=== PATIENT | male | born 1935 | race Caucasian/White ===

== ENCOUNTER 2017-01-05 07:22 | Day surgery (SDC) | payer MEDICARE, OTHER ==
[~2017-01-05] VITALS: Ht 167.6 cm; Wt 71.4 kg
[2017-01-05] VITALS (7 sets, daily range): BP systolic 99–141; BP diastolic 54–82; PULSE 59–65; RESP 15–22; O2SAT 96–100
[~2017-01-05 07:22] MED LIST: ATOR80TA PO; CeFAZolin Inj 2 GM in IV Premix 1 EACH IV ONE; LISI-567 PO; Lactated Ringer's 1,000 ML IV SCH
[2017-01-05] MEDS ORDERED: fentaNYL-PF 50 mCg/mL 2 mL Inj ONE (07:23)
[2017-01-05] MEDS ORDERED: Propofol 10,000 mCg/mL 20 mL Inj ONE (07:23)
[2017-01-05] MEDS ORDERED: Lactated Ringer's 1,000 ML IV ONE (08:30)
--- NOTE | 2017-01-05 09:15 | PCM.HPANE ---
Patient Data Date of Service: Jan 05, 2017 Surgeon Admitting Provider: Attending Provider:John Cartagena DO Primary Care Physician:Jad Warren MD Other Provider:Rickie Cuadra Anesthesia Reason for Visit Right Carpal Tunnel Syndrome, Wrist Radial Deviati Ht/WT & BMI Height (Feet): 5 Height (Inches): 6 Weight (Kilograms): 71.4 Body Mass Index 25.00 Allergies Uncoded Allergies: ENVIRONMENTAL POLLENS (Allergy, Unknown, 01/03/17) Past Anesthesia History Anesthesia History: Denies:: Abnormal Airway, Anesthesia Reactions, Difficult Intubation, Fam Anesthesia Reaction Diabetes History Hx Diabetes?: No MRSA MRSA: No Medications Hypertension Medication: Yes Home Meds Incl Beta Kelvin: No Reported Medications Lisinopril 20 Mg [id number] Mg PO DAILY 30 Days Ref 0 01/03/17 Atorvastatin (Lipitor)80 Mg [id number] Mg PO DAILY Ref 0 01/03/17 History History of ENT Problems?: No HEENT History: Denies:: Abnormal Airway Cataracts Difficult Intubation Dysphagia Glaucoma Hearing Problem Sinus Problem TMJ Hx of Heart Problems?: Yes Cardiovascular History: Positive for:: Hypertension Denies:: AICD Atrial Fibrillation Cardiac Surgery Chest Pain Congestive Heart Failure Coronary Artery Disease Edema Heart Murmur Irregular Heartbeat Pacemaker Peripheral Vascular Rheumatic Fever Thrombophlebitis Valvular Heart Disease Other Cardiac History: bilateral carotid- dr menezes at [facility] 5 years ago Other History/Comments >4 mets Hx of Respiratory Problem?: No Respiratory History: Positive for:: Pneumonia (remote hx ) Denies:: Asthma COPD Emphysema Oxygen Administration Tuberculosis Use of C-PAP Machine Use of Inhalers / NEBS Hx Neurologic Problems?: No Neurological History: Denies:: Alzheimer's Disease CVA (questionable- post carotid- unsure) Headaches Multiple Sclerosis Parkinson's Disease Seizures TIA Hx of GI Problems?: No Gastrointestinal History: Denies:: Cirrhosis Gall Bladder Disease Gastroesphageal Reflux (occasional tums) Gastrointestinal Bleeding Heartburn Hepatitis Hiatal Hernia Liver Disease Hx of Problems?: No Genitourinary History: Denies:: Kidney Stones Urinary Tract Infection Male Hx: Denies:: Prostate Problems Scrotal Mass Testicular Surgery Skin History: Denies:: History Skin Disorders? Pressure Ulcers Hx Musculoskeletal Problems?: Yes Musculoskeletal History: Positive for:: Musculoskeletal Trauma (right hand current admission problem) Osteoarthritis Denies:: Back Injury Fibromyalgia Joint Replacement Myasthenia Gravis Systemic Lupus Hx of Psycho/Social Problems?: No Psycho Social History: Denies:: Anxiety Hx Depression Hx Surgeries?: Yes (bilateral carotids, fx legs as child ) Hx Any Other Health Problems?: Yes Other History: Denies:: Cancer Thyroid Disease Hx Diabetes: No Hx Alcohol Use: YesAlcoholic Drinks Per Day: one beer yearlyHx Substance Use: NoHave You Smoked inLast 12 mo: Yes (1/2 pack daily) Stop/Bang S-Snoring: Do You Snore Loudly: No T-Tired: feel tired, fatigued: No O-Obsered: Observed not breath: No P-Blood Pressure: treated: Yes B- Body Mass Index > 35 kg/m2: No A- Age over 50: Yes N- Neck Large Circumference: No G- Gender Male: Yes PEGGY Total Score: 3 PEGGY Risk Assessment: Low Risk, <3 Yes Risk Assessment Category Category 1A: Patient has history of documented sleep apnea, and HAS NOT received any narcotic, sedative or anesthesia administration during this stay. Category 1B: Patient has history of documented sleep apnea, and HAS received any narcotic , sedative or anesthesia administration during this stay Category 2: Patient has SUSPECTED Obstructive Sleep Apnea, and HAS received any narcotic , sedative or anesthesia administration during this stay. Category 3: Patient has SUSPECTED Obstructive Sleep Apnea and HAS NOT received narcotic, sedative or anesthesia administration during this stay. Category 4: Outpatient in Procedural Areas with known sleep apnea or who screen positive for High Risk via the STOP/BANG questionnaire. Exam Exam General Appearance: Alert, Oriented X3, Cooperative, No Acute Distress HEENT/AIRWAY: MP 3 Lungs: Clear to Auscultation, Normal Air Movement Heart: Exam Unremarkable, Regular Rate/Rhythm, No Murmurs/Rubs/Gallops Meds/Labs/Diagnostics Admission Meds Current Medications Lactated Ringer's (Lr) 1,000 ml @ ud STK-MED ONCE IV Last administered on 01/05t 08:30; Start 01/05/17 at 08:30; Stop 01/05/17 at 09:00; Status DC Plan Impression Patient chart reviewed, patient interviewed and anesthestic plan with risks, benefits, and alternatives discussed, and informed consent obtained. NPO Status: >8 h ASA Physical Status: ASA3 Severe Disease Anesthetic Plan: GA Bene/Risks/Altern/Consents: Yes HP Complete Prior to Induction: Yes Heriberto Jackson MD Jan 05, 2017 09:15
[2017-01-05] MEDS ORDERED: Lactated Ringer's 500 ML IV PRN (09:52)
[2017-01-05] MEDS ORDERED: Lactated Ringer's 1,000 ML IV SCH (09:52)
[2017-01-05] MEDS ORDERED: Dexamethasone 4 mg/mL Inj IVPUSH PRN (09:55)
[2017-01-05] MEDS ORDERED: Ondansetron 2 mg/mL 2 mL Inj IVPUSH PRN (09:55)
[2017-01-05] MEDS ORDERED: MetoCLOpramide 5 mg/mL 2 mL Inj IVPUSH PRN (09:55)
[2017-01-05] MEDS ORDERED: Phenylephrine 10,000 mCg/mL Inj IVPUSH PRN (09:55)
[2017-01-05] MEDS ORDERED: fentaNYL-PF 50 mCg/mL 2 mL Inj IVPUSH PRN (09:55)
[2017-01-05] MEDS ORDERED: HYDROmorphone 1 mg/mL Inj IVPUSH PRN (09:55)
[2017-01-05] MEDS ORDERED: EPHEDrine Sulfate 50 mg/mL Inj IVPUSH PRN (09:55)
[2017-01-05] MEDS ORDERED: Lidocaine 1%-Epi 1:100,000 20 mL Inj INFILTRATE ONE (11:16)
--- NOTE | 2017-01-05 11:38 | PCM.ANEP1 ---
Post Anesthesia Phase 1 PACU Phase 1 Assessment Date of Service: Jan 05, 2017 Vital Signs 36.1 99/59 58 14 96% fm Anesthetic Administered: Regional Block Level of Alertness: Sleeping, hard to arouse SIMS's with Equal Strength: No Pain: No Nausea or Vomiting: No Oxygen Delivery: Simple Mask Lungs: Clear to Auscultation, Normal Air Movement Heriberto Jackson MD Jan 05, 2017 11:38
--- NOTE | 2017-01-05 12:24 | PCM.ANEP2 ---
Post Anesthesia Evaluation ASA/CMS Post Anesthesia Date of Service: Jan 05, 2017 VS in Patient's Normal Range?: Yes Resp Stable; Airway Patent?: Yes CV Function & Hydration Stable: Yes Mental Status Recovered?: Yes Pain control Satisfactory?: Yes N/V Control Satisfactory?: Yes Heriberto Jackson MD Jan 05, 2017 12:24
--- NOTE | 2017-01-06 22:12 | OP ---
[address] [address] OPERATIVE REPORT PATIENT: OCTAVIO REY : 1935 MR#: [id number] ADMIT: 01/05/2017 JOB ID: [id number] DATE OF SURGERY: 01/05/2017 PREOPERATIVE DIAGNOSIS(ES): 1. Right middle, ring, and small finger sagittal band rupture. 2. Right wrist radial deviation. 3. Right carpal tunnel syndrome. POSTOPERATIVE DIAGNOSIS(ES): 1. Right middle, ring, and small finger sagittal band rupture. 2. Right wrist radial deviation. 3. Right carpal tunnel syndrome. PROCEDURE: 1. Right middle, ring and small finger release of lateral bands and centralization of the extensor tendons. 2. Right wrist tendon transfer of the extensor carpi radialis longus and extensor carpi radialis brevis. 3. Right open carpal tunnel release. SURGEON: John Cartagena D.O. BUS [employer] GARAGE MECHANIC: Wilbert Castanon PA-C. The assistance of Wilbert Castanon PA-C, was necessary in help for retraction as well as for manipulation of his fingers during the procedure and for primary closure. ANESTHESIA: Block with sedation. BRIEF HISTORY: The patient is a pleasant 81-year-old male who presented with sagittal band ruptures to his middle ring and small finger. He also demonstrated signs of ulnar drift and with radial deviation of the wrist and numbness to the hand. He had failed conservative treatment. I gave the patient the option with his worsening symptoms, to proceed with a wrist centralization with transfer of the ECRL to ECRB, sagittal band centralization of the middle through the small finger and a right open carpal tunnel release. He understood the risks include, but are not limited to neurovascular injury, tendon injury, infection, failure of fixation, stiffness, persistent pain which may require further intervention. The patient had all questions answered. Consent was signed and placed in the chart. PROCEDURE IN DETAIL: The patient was brought to the operative suite and placed supine on the operating room table. Surgical time-out was performed. Everyone in the room was in agreement. After appropriate anesthesia was obtained, a right upper arm tourniquet was applied and the right upper extremity prepped and draped in a sterile fashion. Right upper extremity was then exsanguinated and tourniquet inflated to 250 mmHg. The patient's carpal tunnel was approached first. A 2 cm longitudinal incision was made in line with the radial aspect of the ring finger, the ulnar aspect of the palmaris longus. The incision was kept distal to the wrist crease and proximal to Flanagan cardinal line. Subcutaneous tissues were dissected with bipolar electrocautery utilized to maintain hemostasis throughout the procedure. Palmar fascia was next identified and incised longitudinally in line with the skin incision followed by exposure of the underlying transverse carpal ligament. Transverse carpal ligament was then released in its entirety to include the distal extent of the antebrachial fascia. Copious irrigation was then performed followed by closure of the skin with 5-0 nylon in a simple interrupted fashion. Attention was then turned towards the wrist centralization. A longitudinal incision was made centered at the level of the wrist along the axis of the 3rd metacarpal. Large skin flaps were raised. The overlying extensor indicis proprius and digitorum communis was retracted ulnarly exposing the underlying 2nd dorsal compartment. The ECRL tendon was identified at its insertion and released off of the dorsal radial base of the 2nd metacarpal. It was then transferred over to the ECRB tendon, weaving it through the tendon three times utilizing a Pulvertaft weave. This was secured utilizing 4-0 Ethibond. Attention was then turned towards the centralization of the extensor tendons and release of the lateral band. A transverse incision was made just proximal to the 3rd through 5th metacarpophalangeal joints. Dissection was carried down and focused first on the middle finger. The extensor tendon was dislocated within the gutter between the 3rd and 4th metacarpal heads. The ulnar sagittal band was released allowing some centralization of the tendon. This was further carried distally to also release the lateral band. The radial sagittal band was then incised and reefed and repaired with 4-0 Ethibond in a [id number] fashion. Several 4-0 Ethibonds were utilized allowing for excellent visualization of the overlying extensor tendon. The middle finger was brought through a full passive functional range of motion and no further subluxation was appreciated. Attention was then turned towards the ring finger. Again, the ulnar sagittal band was identified and incised allowing for some centralization of the extensor tendon. Further release distally to include the lateral band allowed for full centralization of the tendon. The radial sagittal band was found to be redundant and this was incised and reefed, repairing down with 4-0 Ethibond with multiple [id number] suture. Again the ring finger was brought through a full functional range of motion and no further subluxation of the extensor tendon was appreciated. Finally attention was then turned towards the small finger. Both the extensor digiti communis and extensor digiti minimi to the small finger were subluxed ulnarly. Again, the ulnar sagittal band was incised as well as the lateral band to further centralize both of the tendons. The radial sagittal band was also incised and reefed and repaired with 4-0 Ethibond with multiple [id number] sutures. Excellent repair was achieved and no further subluxation was appreciated with passive range of motion of the small finger. Copious irrigation was performed. The skin for both dorsal incisions was then closed with 4-0 nylon in simple interrupted fashion. The patient was then placed into a well-padded, well-molded volar resting splint, immobilizing the MCP joints in maximal extension and keeping the PIP joints free to allow for some range of motion of the fingers. The fingers were also kept as radial deviated as possible within the splint. ESTIMATED BLOOD LOSS: Less than 5 cc. COMPLICATIONS: None. DISPOSITION: The patient tolerated the procedure well. Anesthesia was reversed and the patient was transferred to PACU for recovery. POSTOPERATIVE PLAN: The patient will follow with occupational therapy within the first week postop and have a brace fashioned to immobilize the MCP joints in full extension and with some radial deviation to prevent recurrence of the ulnar drift. The patient's PIP joints will be left free to allow for range of motion of the PIP and the DIP joints. He will be in the brace for four weeks postop before initiating any range of motion to the MCP joints. The patient will follow up in the office in two weeks.
== END 2017-01-05 23:59 | disposition home or self-care (01) ==
LOC: SAS 07:22
PROVIDERS: ATTEND Orthopaedic Surgery
DX: M25.541 Pain in joints of right hand (principal); R20.2 Paresthesia of skin; S63.65 Sprain of metacarpophalangeal joint of other and unspecified finger(s); M24.531 Contracture, right wrist; G56.01 Carpal tunnel syndrome, right upper limb; I10 Essential (primary) hypertension; E78.00 Pure hypercholesterolemia, unspecified; F17.210 Nicotine dependence, cigarettes, uncomplicated
CPT/HCPCS: 25310; 26437; 64721; 76942; J0690; J3010; J7120